=== PATIENT | female | born 2000 | race Caucasian/White ===

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

== ENCOUNTER 2020-08-15 14:48 | Emergency (ER) | payer SELFPAY ==
[2018-09-04 14:00] VITALS: BMI 28.0
[2020-08-15 14:49] VITALS: BP 133/70; PULSE 74; RESP 18; TEMP 36.3; O2SAT 99; BMI 32.3
--- NOTE | 2020-08-15 15:04 | EDS_ITS ---
HPI History of Present Illness Chief Complaint: Lower Extremity Injury Informant: patient Onset/Context/Timing Onset: Weeks and Month(s) Context: Gradual Onset Timing: Intermittent Quality of Pain: Aching and Throbbing Current Severity: Moderate Maximum Severity: Moderate Associated Symptoms Associated Symptoms: Negative for Parasthesia, Weakness and Loss of Funtion Narrative Narrative: Patient is a 19-year-old female who presents to the emergency department with left knee pain. The patient had bilateral meniscus repair along with ACL repair patient approximately 3 years ago. She states she did not effectively rehab it and has been having some knee pain since. 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 She has to be on feet during the day and has significant motion and hiking. She states the knee will swell and throb. She denies any laxity. She denies any fevers or chills. PFSH PFSH Home Medications methylprednisolone 4 mg PO UD #1 box 08/15/20 [Rx Last Taken Unknown] naproxen 500 mg PO BID #20 tab 08/15/20 [Rx Last Taken Unknown] Allergy/AdvReac Type Severity Reaction Status Date / Time No Known Allergies Allergy Verified 08/15/20 14:52 Surgical History (Updated 08/15/20 @ 15:50 by Hilario Koroma) H/O lateral meniscus repair of left knee H/O medial meniscus repair of left knee History of repair of ACL Social History Smoking Status: Never smoker ROS ROS ED Constitutional Constitutional ED: Denies chills or fever(s) Eyes Eyes: Denies blurry vision or change in vision ENT ENT ED: Denies ear pain or sore throat Cardiovascular Cardiovascular: Denies chest pain or palpitations Respiratory/Chest Respiratory/Chest: Denies cough, dyspnea or dyspnea on exertion Gastrointestinal Gastrointestinal: Denies abdominal pain, nausea or vomiting Genitourinary Genitourinary ED: Denies dysuria or urinary frequency Musculoskeletal Musculoskeletal: Denies arthralgias or myalgias Integumentary Denies rash Neurologic Neurologic: Denies headache(s) or paresthesias Psychiatric Psychiatric: Denies anxiety or depression Endocrine Endocrinology: Denies polydipsia or polyuria Allergic/Immunologic Allergic/Immunologic ED: Denies urticaria EXAM Physical Exam Const Vital Signs: 08/15/20 14:49 Temperature 97.4 F L Temperature Source Temporal Pulse Rate 74 Respiratory Rate 18 Blood Pressure 133/70 H Blood Pressure Mean 91 Pulse Ox 99 Oxygen Delivery Method Room Air Positive well nourished and well developed General Appearance ED: well developed HEENT Reports normocephalic, head/scalp atraumatic and moist mucous membranes Eyes PERRL and EOMs intact bilaterally Neck no lymphadenopathy and supple General: Negative for tenderness Chest Wall inspection of chest normal Resp normal respiratory effort and clear to auscultation bilaterally Cardio regular rate, regular rhythm and no murmurs GI normal to inspection, nondistended, normoactive bowel sounds Palpation: Negative for tender, guarding or rebound tenderness present Back/Spine no CVA tenderness Cervical Spine: Negative for cervical spine tenderness Thoracic Spine / Upper Back: Negative for thoracic spinal tenderness Extremity normal to inspection Extremity Narrative: Anterior posterior drawer testing is negative. Extension is preserved. No erythema. Scant effusion. No pain with small arc range of motion. General Extremety ED: Negative for tenderness Neuro oriented x3 and CN's II-XII intact bilaterally Neuro Narrative: No focal deficits appreciated. Sensorium / Orientation: alert Psych mental status grossly normal Skin no rashes or lesions noted, no wounds and skin turgor normal MDM MDM MDM Narrative Medical decision making narrative: Plain films were obtained of the knee. These are reviewed by both myself and the radiologist. The patient hardware is intact. There is no loosening. There is no fracture dislocation. At this point, I will treat the patient with a short burst of steroids and anti- inflammatories. I do feel that she would benefit from outpatient physical therapy and appropriate orthopedic follow-up. She is comfortable with this plan of care. Impression 1. Left knee pain Discharge Plan Triage Chief Complaint: Lower Extremity Injury ED Provider: Israel Sal Dx/Rx/DC Orders Instructions: ED Knee Sprain Prescriptions: New methylprednisolone [methylprednisolone] 4 MG tablets,dose pack 4 mg PO UD Qty: 1 RF: 0 naproxen 500 MG tablet 500 mg PO BID Qty: 20 RF: 0 Primary Care Provider: Rian Daigle Referrals: Rian Daigle MD [Primary Care Provider] - Israel Conner DO [STAFF PHYSICIAN] - 3-5 Days
--- NOTE | 2020-08-15 15:55 | RAD_ITS ---
INDICATION: pain EXAMINATION/TECHNIQUE: X-RAY - LEFT XR Knee Complete 4 Views or More COMPARISON: 01/27/2018. FINDINGS: No acute fracture or malalignment. Evidence of prior ACL repair. No significant degenerative changes are seen. No joint effusion. The soft tissues are unremarkable. RAD/Knee 4 or More Views IMPRESSION: No acute radiographic abnormalities. Electronically Signed: Delonte Hernandez MD at 16:47 EDT Tel , Service support ,
== END 2020-08-15 16:50 | disposition home or self-care (01) ==
LOC: ED 15:45
PROVIDERS: Emergency Provider Emergency Medicine; PCP Family Medicine
DX: M25.562 Pain in left knee (principal)
CPT/HCPCS: 73564; 99282

== ENCOUNTER → 2020-10-28 10:59 | Outpatient (CLI) | payer MEDICAID, SELFPAY ==
[2020-10-28 12:16] LABS: Absolute Lymphocyte Count 1.82 X10^3/uL (0.83-4.51); Absolute Neutrophil Count 5.2 X10^3/uL (2.0-7.7); Basophil# 0.04 X10^3/uL; Basophil% 0.5 % (0-1); Eosinophil# 0.16 X10^3/uL; Eosinophils% 2.1 % (0-5); Hematocrit 37.8 % (37-47); Hemoglobin 12.5 g/dL (12.0-15.0); Lymphocyte # 1.82 X10^3/ul (0.83-4.51); Lymphocyte % 23.5 % (19-41); Mean Corp Hgb Conc 33.1 g/dL (32-36); Mean Corpuscular Hgb 29.1 pg (27.0-32.0); Mean Corpuscular Volume 87.9 fL (81-99); Mean Platelet Vol. 10.7 fl (6.2-12.0); Monocyte% 6.4 % (0-10); NRBC Flagged by Analyzer 0 % (0-5); Platelet Count 267 K/mm3 (150-450); RBC Distribution Width SD 38.6 fl (35.1-43.9); White Blood Count 7.8 K/mm3 (4.4-11.0)
[2020-10-28 12:45] LABS: Anion Gap 5 (5-15); BUN 8 mg/dL (7-18); BUN/Creat Ratio 9.8 RATIO (10-20); Calcium,Total 9.5 mg/dL (8.5-10.1); Chloride 107 mmol/L (98-107); Creatinine, Serum 0.82 mg/dL (0.55-1.02); EST Glomerular Filtration Rate 94 mL/min (>60); Est Glom Filt Rate - Afr Amer 114 mL/min (>60); Glucose 82 mg/dL (74-106); Potassium 4.1 mmol/L (3.5-5.1); Sodium Level 138 mmol/L (136-145)
== END ==
PROVIDERS: PCP Family Medicine; Referring Provider Physician Assistant Surgical; Visit Provider Physician Assistant Surgical
DX: Z01.818 Encounter for other preprocedural examination (principal)
CPT/HCPCS: 36415; 80048; 85025

== ENCOUNTER → 2020-12-04 08:03 | Outpatient (CLI) | payer MEDICAID, SELFPAY ==
[2020-12-04 10:10] LABS: Absolute Lymphocyte Count 2.44 X10^3/uL (0.83-4.51); Absolute Neutrophil Count 3.8 X10^3/uL (2.0-7.7); Basophil# 0.02 X10^3/uL; Basophil% 0.3 % (0-1); Eosinophils% 1.5 % (0-5); Hematocrit 38.3 % (37-47); Hemoglobin 12.7 g/dL (12.0-15.0); Lymphocyte # 2.44 X10^3/ul (0.83-4.51); Lymphocyte % 35.7 % (19-41); Mean Corp Hgb Conc 33.2 g/dL (32-36); Mean Corpuscular Hgb 29.5 pg (27.0-32.0); Mean Corpuscular Volume 89.1 fL (81-99); Mean Platelet Vol. 10.8 fl (6.2-12.0); Monocyte% 7.3 % (0-10); NRBC Flagged by Analyzer 0 % (0-5); Neutrophil # 3.75 X10^3/uL (2.7-7.7); Neutrophil % 54.8 % (47-70); Platelet Count 268 K/mm3 (150-450); RBC Distribution Width CV 12.4 % (11.6-14.6); RBC Distribution Width SD 40.7 fl (35.1-43.9); White Blood Count 6.8 K/mm3 (4.4-11.0)
[2020-12-04 10:37] LABS: Anion Gap 8 (5-15); BUN 14 mg/dL (7-18); BUN/Creat Ratio 16.3 RATIO (10-20); Calcium,Total 9.4 mg/dL (8.5-10.1); Chloride 107 mmol/L (98-107); Creatinine, Serum 0.86 mg/dL (0.55-1.02); EST Glomerular Filtration Rate 89 mL/min (>60); Est Glom Filt Rate - Afr Amer 108 mL/min (>60); Glucose 95 mg/dL (74-106); Potassium 3.8 mmol/L (3.5-5.1); Sodium Level 137 mmol/L (136-145)
== END ==
PROVIDERS: PCP Family Medicine; Referring Provider Orthopaedic Surgery; Visit Provider Orthopaedic Surgery
DX: Z01.818 Encounter for other preprocedural examination (principal)
CPT/HCPCS: 36415; 80048; 85025

== ENCOUNTER 2021-01-08 17:00 | Outpatient (RCR) | payer MEDICAID, SELFPAY ==
--- NOTE | 2020-12-08 09:57 | HP.PTEVAL_ITS ---
Patient's Visit Information GUICHO SOLIZ is a 20 year old F referred to Physical Therapy by ZION Hope with a diagnosis of L knee arthroscopy- medial meniscus 12/05/20. Date of Evaluation: 12/08/20 Physical Therapist: Uvaldo Ivy, PT, ATC - Visit Plan Frequency: 3x /Week Duration: 4-6 Weeks Plan: L knee stretching and strengthening, PROM and mobs, balance and proprio, core strengthening, nustep, and HEP - Subjective DOS: 12/05/20. Pt reports she had L knee arthroscopy performed to clean out the medial meniscus and to remove scar tissue off the ACL. Pt reports she is in a lot of pain today. Pt reports her pain had an insidious onset in nature. Pt notes she was told to use her crutches as needed, and that she is weightbearing as tolerated. Pt reports she is not currently working or going to school at this time. Pt reports she has stairs at home that she has to negotiate, and she is able to one step at a time. Pt reports sleep difficulty at this time secondary to pain. Pt denies tingling or numbness in L LE. Pt reports she enjoys playing computer games, but is unable to tolerate sitting for greater than 15 minutes secondary to pain. Pt notes she is limited with most of her IADL's secondary to pain but has her parents to help with those activities at this time. 5/10 pain at rest, 8/10 pain (attempting to ambulate after sitting for a short period of time) - Pain L knee Pain Intensity (Out of 10): 5 Pain Intensity Range: 8 - Objective Neuro: B LE sensation is WNL to light touch. Observation: Incisions appear to be healing well. No signs of infection. ROM: R knee 0-125 degrees, L knee 0-30-65. MMT: R knee 5/5 throughout. L knee is 3/5 and painful. Girth at joint line: R knee 39 cm, L knee 40.5 cm - Balance/Special Test Scores Lower Extremity Functional Score: 28 - Goals Goal 1:: Decrease L knee pain x 50% to aid with sleep Goal Time Frame: 4-6 Weeks Goal 2:: Increase L knee ROM x 50 degrees to aid with restoring a more normalized gait pattern Goal Time Frame: 4-6 Weeks Goal 3:: Increase R knee strength x 2 grades to aid with stair negotiation Goal Time Frame: 4-6 Weeks Goal 4:: I with HEP Goal Time Frame: 4-6 Weeks - Rehabilitation Potential Physical Therapy Diagnosis: Pt has L knee pain, weakness, and limited ROM secondary to L knee arthroscopy Rehabilitation Potential: Good - Anticipated Interventions Patient/Client Instruction: Educate patient on: Condition, Plan of Care For the Purpose of:: To improve self management Therapeutic Exercise to Include: Strength training, Endurance training, Balance training, Flexibilty training, Passive ROM, Active ROM, Dynamic Lumbar Stabilization For the Purpose of:: To decrease pain, To increase ROM, To improve muscle performance and motor function Cryotherapy (ice pack, ice massage): Yes For the Purpose of:: To decrease pain Thank you for the opportunity to evaluate your patient. For Medicare and Medicare HMO plans, please review the plan of care and approve it. It will need to be FAXED BACK to us at [phone] for Medicare purposes. For Medicare only, by signing this I certify the plan of care. Please let me know if there are questions or concerns regarding this plan of care. Physician Signature: Date:
--- NOTE | 2021-01-08 17:29 | HP.PTDCSUM ---
It has been my pleasure to treat GUICHO SOLIZ referred by ZION Hope, with the diagnosis of L knee arthroscopy- medial meniscus 12/05/20 for a total of 5 visit(s). Discharge Date: Please see the following information for a summary of their discharge status. Subjective: I feel like I am ready to be done L knee Pain Intensity (Out of 10): 0 % Improvement: 100 Objective/Function: L knee pain is 0/10. L knee ROM: 0-130. L knee MMT: ext= 4+/5, flex= 5/5. Pt is I with HEP. Rx goals achieved. Goal 1:: Decrease L knee pain x 50% to aid with sleep Goal Progress: Goal Met Goal 2:: Increase L knee ROM x 50 degrees to aid with restoring a more normalized gait pattern Goal Progress: Goal Met Goal 3:: Increase R knee strength x 2 grades to aid with stair negotiation Goal Progress: Goal Met Goal 4:: I with HEP Goal Progress: Goal Met Plan: Discharge If there are questions or concerns regarding this patient's physical therapy, please feel free to call me at [phone]. Thank you for the referral of this patient. Sincerely, Uvaldo Ivy, PT, ATC Balance/Gait/Functional tests - Balance/Special Test Scores Lower Extremity Functional Score: 75
== END 2021-01-08 19:00 | disposition home or self-care (01) ==
LOC: PT 17:00
PROVIDERS: PCP Family Medicine; Referring Provider Physician Assistant Surgical; Visit Provider Physician Assistant Surgical
DX: S83.242D Other tear of medial meniscus, current injury, left knee, subsequent encounter (principal); X58.XXXD Exposure to other specified factors, subsequent encounter; M25.362 Other instability, left knee
CPT/HCPCS: 97110; 97161; 97164; 97530

== ENCOUNTER → 2021-01-29 08:49 | Outpatient (CLI) | payer MEDICAID, SELFPAY ==
[2021-01-29 10:52] LABS: Anion Gap 7 (5-15); BUN 15 mg/dL (7-18); BUN/Creat Ratio 17.1 RATIO (10-20); Calcium,Total 9.3 mg/dL (8.5-10.1); Chloride 106 mmol/L (98-107); Cholesterol 180 mg/dL (200); Creatinine, Serum 0.88 mg/dL (0.55-1.02); EST Glomerular Filtration Rate 86 mL/min (>60); Est Glom Filt Rate - Afr Amer 104 mL/min (>60); Glucose 97 mg/dL (74-106); High Density Lipoprotein 49 mg/dL; Potassium 3.9 mmol/L (3.5-5.1); Sodium Level 139 mmol/L (136-145); Triglycerides 58 mg/dL; Very Low Density Lipoprotein 12 mg/dL (5-40)
[2021-01-29 11:14] LABS: Rubella IgG Reactive (Nonreactive)
[2021-01-30 17:06] LABS: Mumps Antibody,IgG 64.4 AU/mL (Immune >10.9); Rubeola IgG Ab 59.1 AU/mL (Immune >16.4)
== END ==
PROVIDERS: PCP Family Medicine; Referring Provider Nurse Practitioner Family; Visit Provider Nurse Practitioner Family
DX: Z13.220 Encounter for screening for lipoid disorders (principal); Z13.1 Encounter for screening for diabetes mellitus; Z78.9 Other specified health status
CPT/HCPCS: 36415; 80048; 80061; 86735; 86762; 86765

== ENCOUNTER → 2022-06-11 | Outpatient (CLI) | payer OTHER, MEDICAID, SELFPAY ==
[2022-06-21 11:08] LABS: HPV APTIMA, High Risk Negative (Negative)
== END | disposition home or self-care (01) ==
LOC: LABSPEC 09:45
PROVIDERS: PCP Family Medicine; Visit Provider Obstetrics & Gynecology
DX: Z12.4 Encounter for screening for malignant neoplasm of cervix (principal)
CPT/HCPCS: 87624; 88175; G0145

== ENCOUNTER 2023-10-11 14:58 | Outpatient (RCR) | payer BC, MEDICAID, SELFPAY ==
--- NOTE | 2023-10-11 15:40 | HP.PTEVAL_ITS ---
Patient's Visit Information Visit Information Visit Information: GUICHO SOLIZ is a 22 year old F referred to Physical Therapy by Dr. Hiren Farrell DO with a diagnosis of Patellar tendonitis and PF disorders. Date of Evaluation: 10/11/23 Physical Therapist: CHANELLE Melendez Visit Plan Frequency: 2x /Week Duration: 2 Months Plan: 2X/ week for 8 weeks for B hip and Quad strength, functional activities such as stairs, gait training, core strength with HEP Subjective Subjective: Pt has always had pain in L knee (2018 ACL surgery and meniscus repair) and (2020 surgery took a lot of scar tissue out on ACL). The pain is increasing in L knee and R knee pain is there also. She saw a specialist and he said improving her Quads will help her a lot. She does not see the Dr again unless her pain does not get better. She has pain on stairs and sitting or standing for a long period of time. She has loose joints. 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 She has no real numbness and tingling. She struggles sleeping and is uncomfortable. She has not worked out in the last month or so. She used to go to the gym 3X/ week and plays tennis and pickle ball Pain R knee pain: Pain Intensity (Out of 10): 3 L knee pain: Pain Intensity (Out of 10): 6 Objective Objective: Gait: Waks with decrease stance time on the L LE Pt feels uncomfortable walking on heel and toes in her knees R knee AROM 0-130 degrees L knee AROM 0-130 degrees Pt lacks B hip ext AROM LE MMT: R hip flex 11.8 and L hip flex 8 R knee ext 16 and L 11.4 R knee flex 7.1 and L 5.7 R hip abd 12.3 and L 12.4 R hip ext 8.8 and L 8.4 Girth measurements: R tib tub 36.5, infrapatella 41.8, suprapatella 44.6 L 37.9 tib tub, 40 infra , 44.3 supra Palpation: Tender L patellar tendon. No joint line pain Balance/Special Test Scores Lower Extremity Functional Score: 47 Goals Goal 1:: I HEP Goal Time Frame: 6-8 Weeks Goal 2:: Be able to go up and down the steps with no pain with recip gait pattern and a rail Goal Time Frame: 6-8 Weeks Goal 3:: Increase B hip strength (at the time of the eval: R hip abd 12.3 and L 12.4 R hip ext 8.8 and L 8.4) Goal Time Frame: 6-8 Weeks Goal 4:: Be able to walk with equal stance on B LE's Goal Time Frame: 6-8 Weeks Goal 5:: Be able to squat with good form and no pain Goal Time Frame: 6-8 Weeks Rehabilitation Potential Rehabilitation Potential: Good Anticipated Interventions Patient/Client Instruction: Educate patient on: Condition and Plan of Care For the Purpose of:: To decrease pain, To decrease swelling/inflammation, To increase ROM, To improve nutrient delivery to tissue, To improve muscle performance and motor function, To improve ability to perform ADL's, To increase tolerance to activity/condition/position, To improve performance and independence with ADL's, To decrease level of supervision to perform tasks, To improve ability of physical actions for home/community/work/leisure, To improve gait and locomotor functions and To improve health of tissue Therapeutic Exercise to Include: Strength training, Balance training, Gait and locomotor training and Dynamic Lumbar Stabilization For the Purpose of:: To decrease pain, To increase ROM, To improve nutrient delivery to tissue, To improve muscle performance and motor function, To improve ability to perform ADL's, To increase tolerance to activity/condition/position, To improve performance and independence with ADL's, To decrease level of superv ision to perform tasks, To improve ability of physical actions for home/community/work/leisure, To improve gait and locomotor functions, To improve health of tissue, To decrease soft tissue restriction and To increase flexibility/ROM Functional Training to Include: Gait training For the Purpose of:: To improve gait and locomotor functions Text: Thank you for the opportunity to evaluate your patient. For Medicare and Medicare HMO plans, please review the plan of care and approve it. It will need to be FAXED BACK to us at [phone] for Medicare purposes. For Medicare only, by signing this I certify the plan of care. Please let me know if there are questions or concerns regarding this plan of care. Physician Signature: Date:
--- NOTE | 2023-12-28 11:22 | HP.PT.NRP ---
Patient Information Patient Information: GUICHO SOLIZ was seen in my office for initial evaluation on 10/11/23. The following Plan of Care was established for this patient: POC Established Initial Frequency: 2x /Week Initial Duration: 2 Months Anticipated Interventions Patient/Client Instruction: Educate patient on: Condition and Plan of Care For the Purpose of:: To decrease pain, To decrease swelling/inflammation, To increase ROM, To improve nutrient delivery to tissue, To improve muscle performance and motor function, To improve ability to perform ADL's, To increase tolerance to activity/condition/position, To improve performance and independence with ADL's, To decrease level of supervision to perform tasks, To improve ability of physical actions for home/community/work/leisure, To improve gait and locomotor functions and To improve health of tissue Therapeutic Exercise to Include: Strength training, Balance training, Gait and locomotor training and Dynamic Lumbar Stabilization For the Purpose of:: To decrease pain, To increase ROM, To improve nutrient delivery to tissue, To improve muscle performance and motor function, To improve ability to perform ADL's, To increase tolerance to activity/condition/position, To improve performance and independence with ADL's, To decrease level of supervision to perform tasks, To improve ability of physical actions for home/community/work/leisure, To improve gait and locomotor functions, To improve health of tissue, To decrease soft tissue restriction and To increase flexibility/ROM Functional Training to Include: Gait training For the Purpose of:: To improve gait and locomotor functions Last Seen Last Seen: This patient was last seen in our office 10/11/23. Pertinent comments regarding their Physical therapy will appear below: THOMAS PT At this point I will be discontinuing this patient from physical therapy. I would be happy to see this patient again in the future if found appropriate by the physician. Thank you! Tracy Doty, CHANELLE Balance/Gait/Functional tests Balance/Special Test Scores Lower Extremity Functional Score: 47
== END 2023-10-11 19:00 | disposition home or self-care (01) ==
LOC: PT 14:58
PROVIDERS: PCP Family Medicine; Referring Provider Student in an Organized Health Care Education/Training Program; Visit Provider Student in an Organized Health Care Education/Training Program
DX: M76.52 Patellar tendinitis, left knee (principal); M22.2X1 Patellofemoral disorders, right knee
CPT/HCPCS: 97161